=== PATIENT | male | born 1940 | race Caucasian/White ===

== ENCOUNTER 2018-12-02 15:19 | Emergency (ER) | payer MEDICARE, OTHER ==
[~2018-12-02] VITALS: Ht 175.3 cm; Wt 75.0 kg
[2018-12-02] MEDS ORDERED: normal saline 1000ml 1,000 ML IV ONE (15:28)
[2018-12-02] MEDS ORDERED: magnesium 2GM in 50ml NS 50 ML IV ONE (15:30)
[2018-12-02] MEDS ORDERED: diltiazem-D5W 125mg/125ml 125 ML IV PRN (15:42)
[2018-12-02] MEDS ORDERED: diltiazem 5mg/ml 5ml inj. IV ONE (15:45)
[2018-12-02] MEDS ORDERED: aspirin 81mg tab.chew PO ONE (15:45)
[2018-12-02] MEDS ORDERED: diltiazem-NS 100mg/100ml 100 ML IV PRN (15:50)
[2018-12-02 15:51] LABS: BASOPHILS % (AUTO) 0.3 % (0-1); EOSINOPHILS # (AUTO) 0.1 X10'3 (0-0.9); EOSINOPHILS % (AUTO) 0.9 % (0-6); HEMOGLOBIN 13.6 g/dl (14.0-17.9); LYMPHOCYTES # (AUTO) 0.6 X10'3 (1.1-4.8); LYMPHOCYTES % (AUTO) 5.3 % (21-51); MEAN CORPUSCULAR HGB CONC 33.9 g/dL (33.0-36.5); MEAN CORPUSCULAR VOLUME 100.3 FL (78-98); MEAN PLATELET VOLUME 6.8 FL (7.4-10.4); MONOCYTES # (AUTO) 0.8 X10'3 (0-0.9); MONOCYTES % (AUTO) 6.9 % (2-12); NEUTROPHILS # (AUTO) 9.5 X10'3 (1.8-7.7); NEUTROPHILS % (AUTO) 86.6 % (42-75); PLATELET COUNT 366 X10'3 (140-440); RED BLOOD COUNT 3.99 X10'6 (4.70-6.10); RED CELL DISTRIBUTION WIDTH 13.2 % (11.5-14.5)
--- NOTE | 2018-12-02 15:53 | NUR ---
DR MONIQUE AT PT BEDSIDE AND PT COVERTED TO NSR AFTER BEING MEDICATED WITH MAGNESIUM, CANCEL CARDIZEM AT THIS TIME, PER DR MONIQUE
--- NOTE | 2018-12-02 16:00 | NUR ---
PHARMACIST AT BEDSIDE TO COMPLETE MED REC
[2018-12-02 16:02] LABS: ALANINE AMINOTRANSFERASE 26 U/L (12-78); ALBUMIN 3.4 G/DL (3.4-5.0); ALBUMIN/GLOBULIN RATIO 1.2 (1.1-1.5); ALKALINE PHOSPHATASE 103 IU/L (46-116); ANION GAP 6 (8-16); ASPARTATE AMINO TRANSFERASE 17 U/L (10-37); BILIRUBIN,TOTAL 0.4 MG/DL (0.1-1.0); BLOOD UREA NITROGEN 12 MG/DL (7-18); BUN/CREATININE RATIO 27.9 (5.4-32.0); CALCIUM 8.8 MG/DL (8.5-10.1); CHLORIDE 101 MMOL/L (99-107); CREATININE 0.43 MG/DL (0.60-1.10); GLUCOSE 103 MG/DL (70-104); POTASSIUM 4.2 MMOL/L (3.5-5.1); SODIUM 141 MMOL/L (135-145); TOTAL CARBON DIOXIDE 34.4 MMOL/L (24-32); TOTAL PROTEIN 6.2 G/DL (6.4-8.2); eGFR > 90 ML/MIN
[2018-12-02 16:06] LABS: PARTIAL THROMBOPLASTIN TIME 26 SECONDS (22-32)
[2018-12-02 16:08] LABS: MAGNESIUM 1.9 MG/DL (1.5-2.4)
[2018-12-02] MEDS ORDERED: LEVO112T5 PO (17:00)
[2018-12-02] MEDS ORDERED: ALBU2.5V12 NEB (17:00)
[2018-12-02] MEDS ORDERED: PRE5T PO (17:00)
[2018-12-02] MEDS ORDERED: LOSA25TA41 PO (17:00)
[2018-12-02] MEDS ORDERED: FLUT1BLS4 IH (17:00)
[2018-12-02] MEDS ORDERED: ALBU8.5H8 IH (17:01)
[2018-12-02] MEDS ORDERED: CALC-1051 PO (17:07)
[2018-12-02] MEDS ORDERED: DILT120C10 PO (17:07)
[2018-12-02] MEDS ORDERED: CHOL100044 PO (17:07)
[2018-12-02] MEDS ORDERED: APIX5TAB3 PO (17:07)
[2018-12-02] MEDS ORDERED: LACT-48 PO (17:07)
[2018-12-02] MEDS ORDERED: CYAN500T63 PO (17:07)
[2018-12-02] MEDS ORDERED: ASPI-1265 PO (17:07)
[2018-12-02] MEDS ORDERED: MULT1TAB74 PO (17:07)
[2018-12-02 17:24] VITALS: BP 120/72
== END 2018-12-02 18:01 | disposition home or self-care (01) ==
LOC: ER 15:20
DX: I47.1 Supraventricular tachycardia (principal); I45.81 Long QT syndrome; D53.9 Nutritional anemia, unspecified; I10 Essential (primary) hypertension; J44.9 Chronic obstructive pulmonary disease, unspecified; I48.91 Unspecified atrial fibrillation; I48.92 Unspecified atrial flutter; Z95.1 Presence of aortocoronary bypass graft; Z87.891 Personal history of nicotine dependence; Z88.2 Allergy status to sulfonamides; Z79.82 Long term (current) use of aspirin; Z79.899 Other long term (current) drug therapy; Z99.81 Dependence on supplemental oxygen
CPT/HCPCS: 36415; 71045; 80053; 83735; 83880; 84484; 85025; 85610; 85730; 93005; 96365; 99291; J3475; J7030; J3490